=== PATIENT | male | born 1965 | race Caucasian/White ===

== ENCOUNTER 2021-12-11 19:33 | Emergency (ER) | payer MEDICAID, SELFPAY ==
[2021-12-11 19:50] VITALS: BP 165/101; PULSE 80; RESP 18; TEMP 36.7; O2SAT 98; BMI 37.5
--- NOTE | 2021-12-11 20:05 | ED.C_ITS ---
HPI - Psych General: Chief Complaint: Psychiatric Symptoms Stated Complaint: SI Time Seen by Provider: 12/11/21 19:48 History of Present Illness: 56-year-old male patient comes in with a complaint of suicidal ideation, although he notes currently that he is not suicidal. He made that statement to EMS, so that he can get a ride [place] to see his daughter who lives on [address]. He made some puncture chandler to his left forearm, which she says were not intended to harm himself or kill himself in any way. He was simply trying to get to where he could see his daughter. He has never been hospitalized for depression or psychiatric problems. He has a history of diabetes and hypertension. He notes that he last drank this morning at some point. He does not appear intoxicated MD complaint: feels depressed and other Onset (ago): hour(s) Duration: resolved prior to arrival History of same: No Relieving factors: none Exacerbating factors: none Context: recent alcohol abuse (This) Associated symptoms: Reports no associated symptoms; Deny auditory hallucinations, visual hallucinations, delusions, homicidal ideation or suicidal ideation Treatments prior to arrival: none Review of Systems Const: Denies: fever(s) ENMT: Denies: throat pain Card: Denies: chest pain Resp: Denies: dyspnea, productive cough or non-productive cough GI: Denies: abdominal pain, nausea, vomiting or diarrhea Neuro: Denies: headache(s) Psych: Denies: visual hallucinations, auditory hallucinations, suicidal ideation or homicidal ideation Physical Exam Const: COMMON NORMALS: no acute distress and patient oriented x3 GENERAL APPEARANCE: cooperative; not ill appearing and not frail appearing NUTRITIONAL APPEARANCE: obese ORIENTATION/CONSCIOUSNESS: Yes awake, Yes oriented to person and Yes oriented to time; not confused HENMT: COMMON NORMALS: normocephalic, atraumatic and Normal external nose present HEAD & SCALP: normocephalic and atraumatic FACE & SINUS: normal facial exam NOSE: Normal external nose present Eye: COMMON NORMALS: Equal, round and reactive pupils present and EOMs intact bilaterally PUPIL: Yes Equal, round and reactive pupils present Chest: COMMONS NORMALS: normal inspection of the chest Resp: COMMON NORMALS: normal respiratory effort, No use of accessory muscles and clear to auscultation bilaterally AUSCULTATION: clear to auscultation bilaterally Cardio: COMMON NORMALS: regular rate and regular rhythm RATE: regular rate RHYTHM: regular rhythm GI: COMMON NORMALS: Normal to inspection, nondistended, normoactive bowel sounds present, Soft to palpation and non-tender PALPATION: Yes Soft to palpation Extremity: NARRATIVE EXTREMITY EXAM: Exam of the left upper extremity reveals some superficial abrasions to the left forearm both anteriorly and posteriorly. There is no bleeding, erythema, streaking or signs of infection Neuro: VANCE COMA SCALE: document GCS findings [place] coma scale eye opening: Spontaneous [place] coma scale verbal response: Orientated [place] coma scale motor response: Obey commands Vance coma scale total score: 15 COMMON NORMALS: patient oriented x3 and CN's II-XII intact bilaterally SENSORIUM/ORIENTATION: Yes oriented to person and Yes oriented to time COORDINATION/BALANCE: [id number] test normal SPEECH: speech normal COORDINATION: [id number] test normal Psych: THOUGHT CONTENT: No delusions Skin: NARRATIVE SKIN EXAM: See above. Course Vital Signs: Vital signs: Vital Signs Temperature 98.0 F 12/11/21 19:50 Pulse Rate 80 12/11/21 19:50 Respiratory Rate 18 12/11/21 19:50 Blood Pressure 165/101 12/11/21 19:50 Pulse Oximetry 98 12/11/21 19:50 Oxygen Delivery Me thod 12/11/21 19:50 MDM - Psych Medical Decision Making This gentleman is not suicidal. He is not intoxicated. His [id number] is normal. He is awake alert and oriented. He simply states that he wished to get a [place] that he can see his daughter. He does appear depressed, however he denies suicidal ideation, auditory or visual hallucinations, and is not on toxic in appearance. He will be allowed discharge at his leisure Discharge Plan Discharge Patient Disposition: Home Clinical Impression: Depression Condition: Stable Discharge Orders: Discharge ED (Routine); Ordered 12/11/21 Ordered By: Yo Hamlin Patient Instructions: Depression (ED) Activity Restrictions/Additional Instructions: In the future, other means of transportation would be desirable. Return for any thoughts or wishes to harm your self or anyone else. Wash your wounds with soap and water. Do not submerge until healed. Return for any other problems or complaints. Coding Level of Care Code ED [employer] for Lisette Posadas Exam Comprehensive
== END 2021-12-11 20:27 | disposition home or self-care (01) ==
PROVIDERS: Emergency Provider Emergency Medicine
DX: F32.A Depression, unspecified (principal)
CPT/HCPCS: 99283